=== PATIENT | male | born 1995 | race Hispanic/Latino ===

== ENCOUNTER 2018-01-22 10:38 | Emergency (ER) | payer OTHER ==
[2018-01-22 11:40] LABS: Absolute Lymphocytes (CBC) 1.6 K/uL (0.7-4.9); Absolute Monocytes 0.6 K/uL (0.1-1.3); Basophils % 0.5 % (0-1.3); Eosinophils % 6.2 % (0-4.4); Hematocrit 42.3 % (39.6-49.0); Lymphocytes % 20.5 % (15.3-44.8); MPV 8.8 fL (7.6-11.3); Monocytes % 7.9 % (3.3-12.3)
[2018-01-22 11:52] LABS: ALT/SGPT 67 U/L (12-78); AST/SGOT 38 U/L (15-37); Alkaline Phosphatase 109 U/L (45-117); BUN Blood Urea Nitrogen 6 mg/dL (7-18); Bicarbonate 32 mmol/L (21-32); Bilirubin Direct 0.1 mg/dL (0-0.2); Bilirubin Total 0.3 mg/dL (0.2-1.0); Glucose Level 85 mg/dL (74-106); Potassium 3.9 mmol/L (3.5-5.1); Sodium Level 141 mmol/L (136-145)
[2018-01-22 11:53] LABS: Albumin 3.6 g/dL (3.4-5.0); Lipase 66 U/L (73-393)
[2018-01-22] MEDS ORDERED: MORPHINE 4 MG/ML SYR ONE (12:06)
[2018-01-22] MEDS ORDERED: METRONIDAZOLE 500mg IVPB 500 MG/100 ML BAG IV ONE (12:06)
[2018-01-22] MEDS ORDERED: NA CHLORIDE 0.9% 2,000 ML ONE (12:06)
[2018-01-22] MEDS ORDERED: CIPROFLOXACIN 400mg IV 400 MG/200 ML BAG IV ONE (12:06)
[2018-01-22] MEDS ORDERED: ONDANSETRON 4 MG/2 ML VIAL ONE (12:06)
--- NOTE | 2018-01-22 13:40 | RAD REPORT ---
EXAM DESCRIPTION: CT - Abdomen Pelvis W Contrast - 01/22/2018 1:17 pm CLINICAL HISTORY: Abdominal pain. COMPARISON: None. TECHNIQUE: Computed axial tomography of the abdomen and pelvis was obtained. 100 cc Isovue-300 is ad ministered intravenously. Oral contrast was given. All CT scans are performed using dose optimization technique as appropriate and may include automated exposure control or mA/KV adjustment according to patient size. FINDINGS: Fatty liver is seen. The spleen, pancreas, adrenals and kidneys appear unremarkable. It appears that the patient has had a colectomy. Dilated bowel presumably small bowel extends from th e rectum into the right pelvis and right abdomen. It measures 6 centimeters. The wall is not thickene d. The remainder of the small bowel caliber is normal. The wall of the rectum appears thickened IMPRESSION: It appears that the patient has had a colectomy. Dilated small bowel extends from the r ectum into the right pelvis and right abdomen. Presumably this represents an adynamic ileus or atonic loop of bowel. Comparisons with prior exams would be helpful. Thickening of the rectal wall probably indicating inflammation
--- NOTE | 2018-01-22 13:55 | EDPHYS ---
Physician Documentation [facility] Name: Jared Vieira Age: 22 yrs Sex: Male : 1995 Arrival Date: 01/22/2018 Time: 10:46 Bed 7 Private MD: out of town, doctor ED Physician Dawson Zaidi HPI: 01/22 11:17 This 22 yrs old Male presents to ER via Ambulatory with complaints of J Pouch jeffery Irritation. 11:17 The patient presents with abdominal pain in the lower abdomen, right lower quadrant. jeffery Onset: The symptoms/episode began/occurred 3 day(s) ago. The patient presents to the emergency department with nausea, vomiting, diarrhea, that is continuous, abdominal pain. Onset: The symptoms/episode began/occurred 3 day(s) ago. Possible causes: unknown. The symptoms are aggravated by movement, pressure. Associated signs and symptoms: The patient has no apparent associated signs or symptoms. Historical: - Allergies: 10:56 No Known Allergies; bp - Home Meds: 10:56 Tylenol #3 Oral [Active]; bp - PMHx: 10:56 ULCERATIVE COLITIS; bp - PSHx: 10:56 COLECTOMY; bp - Immunization history:: Adult Immunizations up to date. - Social history:: Smoking status: Patient/guardian denies using tobacco. - Ebola Screening: : Patient negative for fever greater than or equal to 101.5 degrees Fahrenheit, and additional compatible Ebola Virus Disease symptoms Patient denies exposure to infectious person Patient denies travel to an Ebola-affected area in the 21 days before illness onset No symptoms or risks identified at this time. - Family history:: not pertinent. ROS: 11:17 Constitutional: Negative for fever, chills, and weight loss, Eyes: Negative for injury, jeffery pain, redness, and discharge, ENT: Negative for injury, pain, and discharge, Neck: Negative for injury, pain, and swelling, Cardiovascular: Negative for chest pain, palpitations, and edema, Respiratory: Negative for shortness of breath, cough, wheezing, and pleuritic chest pain, Back: Negative for injury and pain, : Negative for injury, bleeding, discharge, and swelling, MS/Extremity: Negative for injury and deformity, Skin: Negative for injury, rash, and discoloration, Neuro: Negative for headache, weakness, numbness, tingling, and seizure, Psych: Negative for depression, anxiety, suicide ideation, homicidal ideation, and hallucinations, Allergy/Immunology: Negative for hives, rash, and allergies, Endocrine: Negative for neck swelling, polydipsia, polyuria, polyphagia, and marked weight changes, Hematologic/Lymphatic: Negative for swollen nodes, abnormal bleeding, and unusual bruising. 11:17 Abdomen/GI: Positive for abdominal pain, nausea, vomiting, diarrhea, of the right lower quadrant and left lower quadrant. Exam: 11:17 Head/Face: Normocephalic, atraumatic. Eyes: Pupils equal round and reactive to light, jeffery extra-ocular motions intact. Lids and lashes normal. Conjunctiva and sclera are non-icteric and not injected. Cornea within normal limits. Periorbital areas with no swelling, redness, or edema. ENT: Nares patent. No nasal discharge, no septal abnormalities noted. Tympanic membranes are normal and external auditory canals are clear. Oropharynx with no redness, swelling, or masses, exudates, or evidence of obstruction, uvula midline. Mucous membranes moist. Neck: Trachea midline, no thyromegaly or masses palpated, and no cervical lymphadenopathy. Supple, full range of motion without nuchal rigidity, or vertebral point tenderness. No Meningismus. Chest/axilla: Normal chest wall appearance and motion. Nontender with no deformity. No lesions are appreciated. Cardiovascular: Regular rate and rhythm with a normal S1 and S2. No gallops, murmurs, or rubs. Normal PMI, no JVD. No pulse deficits. Respiratory: Lungs have equal breath sounds bilaterally, clear to auscultation and percussion. No rales, rhonchi or wheezes noted. No increased work of breathing, no retractions or nasal flaring. Back: No spinal tenderness. No costovertebral tenderness. Full range of motion. Male : Normal genitalia with no discharge or lesions. Skin: Warm, dry with normal turgor. Normal color with no rashes, no lesions, and no evidence of cellulitis. MS/ Extremity: Pulses equal, no cyanosis. Neurovascular intact. Full, normal range of motion. Neuro: Awake and alert, GCS 15, oriented to person, place, time, and situation. Cranial nerves II-XII grossly intact. Motor strength 5/5 in all extremities. Sensory grossly intact. Cerebellar exam normal. Normal gait. Psych: Awake, alert, with orientation to person, place and time. Behavior, mood, and affect are within normal limits. 11:17 Constitutional: The patient appears febrile. Vital Signs: 10:52 BP 111 / 75; Pulse 69; Resp 16; Temp 100; Pulse Ox 98.7% ; Weight 58.97 kg; Height 5 bp ft. 4 in. (162.56 cm); 14:44 BP 103 / 58; Pulse 75; Resp 17; Pulse Ox 100% on R/A; jb1 10:52 Body Mass Index 22.31 (58.97 kg, 162.56 cm) bp MDM: 11:06 Patient medically screened. [facility] 11:20 Data reviewed: vital signs, nurses notes, lab test result(s), radiologic studies, CT jeffery scan. 01/22 11:16 Order name: Basic Metabolic Panel; Complete Time: 12:08 [facility] 01/22 11:16 Order name: CBC with Diff; Complete Time: 12:08 [facility] 01/22 11:16 Order name: Creatinine for Radiology; Complete Time: 12:08 [facility] 01/22 11:16 Order name: Hepatic Function; Complete Time: 12:08 [facility] 01/22 11:16 Order name: Lipase; Complete Time: 12:08 [facility] 01/22 11:20 Order name: CT Abd/Pelvis - W/Contrast; Complete Time: 13:44 [facility] 01/22 11:16 Order name: IV Saline Lock; Complete Time: 12:16 [facility] 01/22 11:16 Order name: Labs collected and sent; Complete Time: 12:40 [facility] Administered Medications: 12:05 Drug: NS 0.9% 1000 ml Route: IV; Rate: 1 bolus; Site: right antecubital; ss 14:39 Follow up: IV Status: Completed infusion ss 12:05 Drug: Zofran 4 mg Route: IVP; Site: right antecubital; ss 12:40 Follow up: Response: No adverse reaction; Nausea is decreased ss 12:07 Drug: morphine 2 mg Route: IVP; Site: right antecubital; ss 12:40 Follow up: Response: No adverse reaction; Pain is decreased ss 12:14 Drug: Flagyl 500 mg Volume: 100 ml; Route: IVPB; Rate: 200 ml/hr; Infused Over: 30 ss mins; Site: right antecubital; 12:40 Follow up: IV Status: Completed infusion ss 12:40 Drug: Cipro 400 mg Volume: 200 ml; Route: IVPB; Infused Over: 60 mins; Site: right ss antecubital; 14:40 Follow up: IV Status: Completed infusion ss 14:40 Drug: NS 0.9% 1000 ml Route: IV; Rate: 125 ml/hr; Site: right antecubital; ss 14:45 Follow up: IV Status: Infusion continued upon transfer ss 14:40 Drug: SOLU-Medrol 125 mg Route: IVP; Site: right antecubital; 16:24 Follow up: Response: No adverse reaction ss 14:46 Not Given (patient denies pain): morphine 2 mg IVP once ss Disposition: 01/22/18 13:55 Transfer ordered to [facility]. Diagnosis are Abdominal tenderness, Fever, unspecified, Other intestinal obstruction, Ulcerative (chronic) proctitis. - Reason for transfer: Higher level of care. - Accepting physician is to [facility], [facility], gi, general surgery. - Condition is Stable. - Problem is new. - Symptoms have improved. Signatures: Dispatcher [employer] EDFL Dawson Zaidi MD MD cha Smirch, Shelby, RN RN Juan Arenas RN RN bp Corrections: (The following items were deleted from the chart) 16:23 13:55 01/22/2018 13:55 Transfer ordered to [facility]. Diagnosis is ss Abdominal tenderness; Fever, unspecified; Other intestinal obstruction; Ulcerative (chronic) proctitis. Reason for transfer: Higher level of care. Accepting physician is to [facility], [facility], gi, general surgery. Condition is Stable. Problem is new. Symptoms have improved. jeffery
--- NOTE | 2018-01-22 13:55 | ER ---
Nurse's Notes [facility] Name: Jared Vieira Age: 22 yrs Sex: Male : 1995 Arrival Date: 01/22/2018 Time: 10:46 Bed 7 Private MD: out of town, doctor Diagnosis: Abdominal tenderness;Fever, unspecified;Other intestinal obstruction;Ulcerative (chronic) proctitis Presentation: 01/22 10:52 Presenting complaint: Patient states: RLQ PAIN x 3 DAYS, AT SITE OF J-POUCH. Transition bp of care: patient was not received from another setting of care. Onset of symptoms was January 19, 2018. Risk Assessment: Do you want to hurt yourself or someone else? Patient reports no desire to harm self or others. Initial Sepsis Screen: Does the patient meet any 2 criteria? No. Patient's initial sepsis screen is negative. Does the patient have a suspected source of infection? Yes:. Care prior to arrival: None. 10:52 Method Of Arrival: Ambulatory bp 10:52 Acuity: MARE 3 bp Triage Assessment: 10:52 General: Appears in no apparent distress. comfortable, slender, Behavior is calm, bp cooperative, appropriate for age. Pain: Complains of pain in right lower quadrant. Historical: - Allergies: 10:56 No Known Allergies; bp - Home Meds: 10:56 Tylenol #3 Oral [Active]; bp - PMHx: 10:56 ULCERATIVE COLITIS; bp - PSHx: 10:56 COLECTOMY; bp - Immunization history:: Adult Immunizations up to date. - Social history:: Smoking status: Patient/guardian denies using tobacco. - Ebola Screening: : Patient negative for fever greater than or equal to 101.5 degrees Fahrenheit, and additional compatible Ebola Virus Disease symptoms Patient denies exposure to infectious person Patient denies travel to an Ebola-affected area in the 21 days before illness onset No symptoms or risks identified at this time. - Family history:: not pertinent. Screenin:30 Abuse screen: Denies threats or abuse. Denies injuries from another. Nutritional ss screening: No deficits noted. Tuberculosis screening: Never had TB. 11:30 Fall Risk None identified. ss Assessment: 11:00 General: Appears in no apparent distress. comfortable, Behavior is calm, cooperative. ss Pain: Complains of pain in right lower quadrant Pain currently is 6 out of 10 on a pain scale. at worst was 8 out of 10 on a pain scale. Quality of pain is described as aching, tender, Pain began 2-3 days ago. Is intermittent. Neuro: Level of Consciousness is awake, alert, obeys commands, Oriented to person, place, time, situation. Cardiovascular: Heart tones S1 S2 present Capillary refill < 3 seconds is brisk in bilateral fingers Patient's skin is warm and dry. Respiratory: Airway is patent Respiratory effort is even, unlabored, Respiratory pattern is regular, symmetrical, Breath sounds are clear bilaterally. GI: Reports mild N/VD since pain began. GI: Abdomen is non-distended, Abd is soft X 4 quads Abdomen is tender to palpation in suprapubic area and right lower quadrant. : No signs and/or symptoms were reported regarding the genitourinary system. EENT: Oral mucosa is moist. Throat is clear. Derm: Skin is intact, is healthy with good turgor, Skin is pink, warm \T\ dry. normal. Musculoskeletal: Circulation, motion, and sensation intact. Range of motion: intact in all extremities, Swelling absent. 12:00 Reassessment: Patient appears in no apparent distress at this time. Patient is alert, ss oriented x 3, equal unlabored respirations, skin warm/dry/pink. patient is laughing with spouse and child. 13:00 Reassessment: Patient appears in no apparent distress at this time. No changes from ss previously documented assessment. Patient and/or family updated on plan of care and expected duration. Pain level reassessed. awaiting CT to be obtained. 14:46 Reassessment: Patient appears in no apparent distress at this time. Patient and/or ss family updated on plan of care and expected duration. Pain level reassessed. Patient is alert, oriented x 3, equal unlabored respirations, skin warm/dry/pink. awaiting administrative approval from receiving facility. 15:10 Reassessment: Report called to ROSEMARIE Lilly at [facility]. Awaiting EMS ss transportation. Vital Signs: 10:52 BP 111 / 75; Pulse 69; Resp 16; Temp 100; Pulse Ox 98.7% ; Weight 58.97 kg; Height 5 bp ft. 4 in. (162.56 cm); 14:44 BP 103 / 58; Pulse 75; Resp 17; Pulse Ox 100% on R/A; jb1 10:52 Body Mass Index 22.31 (58.97 kg, 162.56 cm) bp ED Course: 10:46 Patient arrived in ED. mr 10:46 out of town, doctor is Private Physician. mr 10:53 Triage completed. bp 10:55 Arm band placed on. bp 11:00 Patient has correct armband on for positive identification. Bed in low position. Call ss light in reach. Pulse ox on. NIBP on. 11:00 Inserted saline lock: 20 gauge in right antecubital area, using aseptic technique. ss Blood collected. 11:06 Dawson Zaidi MD is Attending Physician. [facility] 11:55 Mickie Gomez RN is Primary Nurse. ss 13:16 CT completed. Patient tolerated procedure well. Patient moved to CT via wheelchair. Patient moved back from CT. 13:17 CT Abd/Pelvis - W/Contrast In Process Unspecified. EDMS 16:21 No provider procedures requiring assistance completed. Patient transferred, IV remains ss in place. Administered Medications: 12:05 Drug: NS 0.9% 1000 ml Route: IV; Rate: 1 bolus; Site: right antecubital; ss 14:39 Follow up: IV Status: Completed infusion ss 12:05 Drug: Zofran 4 mg Route: IVP; Site: right antecubital; ss 12:40 Follow up: Response: No adverse reaction; Nausea is decreased ss 12:07 Drug: morphine 2 mg Route: IVP; Site: right antecubital; ss 12:40 Follow up: Response: No adverse reaction; Pain is decreased ss 12:14 Drug: Flagyl 500 mg Volume: 100 ml; Route: IVPB; Rate: 200 ml/hr; Infused Over: 30 ss mins; Site: right antecubital; 12:40 Follow up: IV Status: Completed infusion ss 12:40 Drug: Cipro 400 mg Volume: 200 ml; Route: IVPB; Infused Over: 60 mins; Site: right ss antecubital; 14:40 Follow up: IV Status: Completed infusion ss 14:40 Drug: NS 0.9% 1000 ml Route: IV; Rate: 125 ml/hr; Site: right antecubital; ss 14:45 Follow up: IV Status: Infusion continued upon transfer ss 14:40 Drug: SOLU-Medrol 125 mg Route: IVP; Site: right antecubital; ss 16:24 Follow up: Response: No adverse reaction ss 14:46 Not Given (patient denies pain): morphine 2 mg IVP once ss Outcome: 13:55 ER care complete, transfer ordered by MD. gil 16:21 Transferred by ground EMS ss 16:21 Condition: good 16:21 Instructed on the need for transfer. 16:23 Patient left the ED. ss Signatures: Dispatcher [employer] EDGirma Leon jb1 Dawson Zaidi MD MD cha Rivera, Lili Chapa, Mickie Osborne, ROSEMARIE RN Juan Arenas RN RN bp
[2018-01-22] MEDS ORDERED: METHYLPREDNISOLONE 125 MG INJ ONE (14:33)
== END 2018-01-22 16:23 | disposition short-term general hospital (02) ==
LOC: ER 10:38
DX: K51.212 Ulcerative (chronic) proctitis with intestinal obstruction (principal); R50.9 Fever, unspecified
CPT/HCPCS: 36415; 74177; 80048; 80076; 83690; 85025; 96365; 96367; 96375; 99285; J0744; J2405; J2930; J7030; Q9967